=== PATIENT | female | born 1955 | race Caucasian/White ===

== ENCOUNTER → 2023-08-10 06:23 | Day surgery (SDC) | payer OTHER, SELFPAY | LOC: GI 06:23 | PROVIDERS: ATTENDING PHYSICIAN Internal Medicine; FAMILY PHYSICIAN Family Medicine | DX: Z12.11 Encounter for screening for malignant neoplasm of colon (principal); K57.30 Diverticulosis of large intestine without perforation or abscess without bleeding; D12.8 Benign neoplasm of rectum | CPT/HCPCS: 45385; 88305 ==

== ENCOUNTER 2023-10-01 18:48 | Inpatient (IN) | payer OTHER, SELFPAY ==
[2023-10-01 15:03] VITALS: BP 159/98
--- NOTE | 2023-10-01 16:41 | ED.GENMED ---
History of Present Illness
<MARIBEL Mcnally - Last Filed: 10/01/23 23:24>
General
Chief Complaint: Skin Problem
Source: patient
Exam Limitations: none
Time Seen by Provider: 10/01/23 15:17
Nursing documentation reviewed up to this point in time: agreed with
Travel History
Have you had any contact with someone who has COVID-19?: No
Do you have any symptoms of coronavirus? Fever > 100 degrees, chills, cough, shortness of breath, sore throat, loss of taste or smell, muscle aches, or headache?: No
History of Present Illness
History of Present Illness:
68-year-old female presents to the ER for evaluation of right thumb infection. She reports that she started with redness almost a week ago to the right thumb. She saw her family doctor on Wednesday and was placed on Bactrim. She has since taken 5
doses. Today however she noticed red streaking extending up her arm. She did try to put a needle in it to drain it this a.m. She did use alcohol fire prevention bureau captain. She went to her family doctor's and was sent here. She reports it did start to drain. She now
feels a little feverish.
Past History
<MARIBEL Mcnally - Last Filed: 10/01/23 23:24>
Past History
ED Past Medical History: HTN
ED Past Surgical History: Gynecological and Orthopedic
Social History
Tobacco: Non-smoker
Alcohol: None
Drug: None
Living: with family
Review of Systems
<MARIBEL Mcnally - Last Filed: 10/01/23 23:24>
Review of Systems
Allergies reviewed?: Yes
All Other Systems: ROS reviewed and negative except as documented in HPI and ROS
Constitutional: Reports no symptoms; Denies fever or fatigue
Respiratory: Reports no symptoms
Cardiac: Reports no symptoms
Musculoskeletal: Reports other (right thumb swelling pain redness now with red streaking up her arm )
Skin: Reports no symptoms
Neurological: Reports no symptoms
Psychiatric: Reports no symptoms
Phy Exam
<MARIBEL Mcnally - Last Filed: 10/01/23 23:24>
General Physical Exam
General Presentation: no apparent distress
General age: appears stated age
General Skin: warm and dry
General Habitus: normal
General Mental: alert
General Hydration: appears well hydrated
Neurological Exam
Neurological Exam: alert and oriented x3
Musculoskeletal Exam
Musculoskeletal Exam: other (right thumb is swollen + visible pus proximal to cuticle draining , erythema extending up proximal arm )
Skin Exam
Skin Exam: normal color and warm/dry
Psychiatric Exam
Psychiatric Exam: normal mood/affect
Course
<MARIBEL Mcnally - Last Filed: 10/01/23 23:24>
Orders/Labs/Results
Orders:
Orders
10/01/23 Breakfast
Cholesterol Lowering
At Your Request: Full Participation
Cholesterol Lowering: Sodium, 2 Gram
10/01/23 16:38
IV Insert/Care/Rem.- Treatment PRN
10/01/23 16:54
Complete Blood Count/With Diff Urgent
Comprehensive Metabolic Panel Urgent
Lactic Acid Q4H
Comment: CANCEL 2nd LACTIC ACID IF 1st LACTIC ACID IS LESS THAN 2
Blood Culture Q30M
RAMA Source: Blood/Venous
Specimen Description:
Wound Culture [Wound/Abscess/Other Culture] Urgent
RAMA Source: Finger
Specimen Description: Right
Date Specimen was Collected: 10/01/23
Time Specimen was Collected: 16:41
10/01/23 17:17
Blood Culture Q30M
RAMA Source: Blood/Venous
Specimen Description:
10/01/23 17:58
ORTHOPEDIC CONSULT Urgent
Consulting Provider: Fabiano Green
Was physician already notified: Yes
10/01/23 18:03
CeFAZolin 1 GRAM [Ancef] 1 gram in 5 ml IV NOW
10/01/23 18:10
Finger(s)/Thumb 2 View Rt [CR Finger(s)/thumb Min 2 Vw Rt] Urgent
Comment:
Reason For Exam: right thumb infection
10/01/23 18:13
CeFAZolin 1 GRAM [Ancef] 1 gram in 5 ml IV NOW
10/01/23 18:24
Tetanus/Diphth/Acelpertussis [Adacel] 0.5 ml IM .ONCE ONE
10/01/23 18:32
Admit/Transfer Patient As Directed
Co-Sign Provider:
Level of Care: Inpatient admission
Assign to:: Medical/Surgical
Physician / Group: Ross arce
Diagnosis: right thumb cellulitis
Reason for Hospitalization: right thumb cellulitis
Expected length of stay greater than two midnights?: Yes
ELOS- Estimated Length of Stay in days: 3
I certify the patient meets the requirements for IP care: Yes
10/01/23 18:33
Code Status As Directed
Resuscitation Status: Full Code
10/01/23 19:54
Acetaminophen [Tylenol] 650 mg PO Q4HPRN PRN
10/01/23 19:54
INFECTIOUS DISEASE CONSULT Routine
Consulting Provider: Deyanira Zhang
Was physician already notified: Yes
Activity As Directed
Activity Level: Out of Bed-Early Mobility
Intake/ Output As Directed
Frequency: Per unit guidelines
Vital Signs As Directed
Frequency: Per unit guidelines
DX Deep Vein Thrombosis Video Routine
10/01/23 20:00
VANCOMYCIN Pharmacy to Dose [VANCOCIN Pharmacy to Dose] 1 each Pharmacy To Prepare [Call Pharmacy To Prepare] 0 ml IV PER PROTOCOL
cycloSPORINE [Restasis 0.05% Ophthalmic Emulsion] 10 drops BOTH EYES BID
10/01/23 22:00
Cefepime HCl [Maxipime] 2,000 mg IV Q8H
doxylamine succinate 25 mg PO HS
10/02/23 06:00
Basic Metabolic Panel IN AM
Complete Blood Count/No Diff IN AM
10/02/23 18:00
Enoxaparin Sodium [Lovenox] 40 mg SC QPM
Lisinopril [Zestril] 20 mg PO QPM
10/03/23 06:00
Basic Metabolic Panel IN AM
Complete Blood Count/No Diff IN AM
10/04/23 06:00
Basic Metabolic Panel IN AM
Complete Blood Count/No Diff IN AM
10/05/23 06:00
Basic Metabolic Panel IN AM
Complete Blood Count/No Diff IN AM
10/06/23 06:00
Basic Metabolic Panel IN AM
Complete Blood Count/No Diff IN AM
Abnormal Lab Results
10/01/23
16:54
MPV 10.5 H fL
(7.4-10.4)
Absolute Neuts (auto) 7.3 H 10^3/uL
(1.4-6.5)
Absolute Monos (auto) 0.9 H 10^3/uL
(0.1-0.6)
10/01/23 16:54
10/01/23 16:54
Vital Signs
Initial and Last Documented VS:
Initial Vital Signs
Temp Pulse Resp BP Pulse Ox
98.3 F 87 18 159/98 99
10/01/23 15:03 10/01/23 15:03 10/01/23 15:03 10/01/23 15:03 10/01/23 15:03
Last Documented Vital Signs
Temp Pulse Resp BP Pulse Ox
98.3 F 79 16 153/89 98
10/01/23 15:03 10/01/23 18:47 10/01/23 18:47 10/01/23 18:47 10/01/23 18:47
Decommissioning Well Site Manager consulted with Physician
Decommissioning Well Site Manager consulted with physician?: Yes
Name of Physician Consulted: armond
<Mikie Gandhi MD - Last Filed: 10/01/23 18:44>
Orders/Labs/Results
Orders:
Orders
10/01/23 Breakfast
Cholesterol Lowering
At Your Request: Full Participation
Cholesterol Lowering: Sodium, 2 Gram
10/01/23 16:38
IV Insert/Care/Rem.- Treatment PRN
10/01/23 16:54
Complete Blood Count/With Diff Urgent
Comprehensive Metabolic Panel Urgent
Lactic Acid Q4H
Comment: CANCEL 2nd LACTIC ACID IF 1st LACTIC ACID IS LESS THAN 2
Blood Culture Q30M
RAMA Source: Blood/Venous
Specimen Description:
Wound Culture [Wound/Abscess/Other Culture] Urgent
RAMA Source: Finger
Specimen Description: Right
Date Specimen was Collected: 10/01/23
Time Specimen was Collected: 16:41
10/01/23 17:17
Blood Culture Q30M
RAMA Source: Blood/Venous
Specimen Description:
10/01/23 17:58
ORTHOPEDIC CONSULT Urgent
Consulting Provider: Fabiano Green
Was physician already notified: Yes
10/01/23 18:03
CeFAZolin 1 GRAM [Ancef] 1 gram in 5 ml IV NOW
10/01/23 18:10
Finger(s)/Thumb 2 View Rt [CR Finger(s)/thumb Min 2 Vw Rt] Urgent
Comment:
Reason For Exam: right thumb infection
10/01/23 18:13
CeFAZolin 1 GRAM [Ancef] 1 gram in 5 ml IV NOW
10/01/23 18:24
Tetanus/Diphth/Acelpertussis [Adacel] 0.5 ml IM .ONCE ONE
10/01/23 18:32
Admit/Transfer Patient As Directed
Co-Sign Provider:
Level of Care: Inpatient admission
Assign to:: Medical/Surgical
Physician / Group: Ross arce
Diagnosis: right thumb cellulitis
Reason for Hospitalization: right thumb cellulitis
Expected length of stay greater than two midnights?: Yes
ELOS- Estimated Length of Stay in days: 3
I certify the patient meets the requirements for IP care: Yes
10/01/23 18:33
Code Status As Directed
Resuscitation Status: Full Code
10/01/23 19:54
Acetaminophen [Tylenol] 650 mg PO Q4HPRN PRN
10/01/23 19:54
INFECTIOUS DISEASE CONSULT Routine
Consulting Provider: Deyanira Zhang
Was physician already notified: Yes
Activity As Directed
Activity Level: Out of Bed-Early Mobility
Intake/ Output As Directed
Frequency: Per unit guidelines
Vital Signs As Directed
Frequency: Per unit guidelines
DX Deep Vein Thrombosis Video Routine
10/01/23 20:00
VANCOMYCIN Pharmacy to Dose [VANCOCIN Pharmacy to Dose] 1 each Pharmacy To Prepare [Call Pharmacy To Prepare] 0 ml IV PER PROTOCOL
cycloSPORINE [Restasis 0.05% Ophthalmic Emulsion] 10 drops BOTH EYES BID
10/01/23 22:00
Cefepime HCl [Maxipime] 2,000 mg IV Q8H
doxylamine succinate 25 mg PO HS
10/02/23 06:00
Basic Metabolic Panel IN AM
Complete Blood Count/No Diff IN AM
10/02/23 18:00
Enoxaparin Sodium [Lovenox] 40 mg SC QPM
Lisinopril [Zestril] 20 mg PO QPM
10/03/23 06:00
Basic Metabolic Panel IN AM
Complete Blood Count/No Diff IN AM
10/04/23 06:00
Basic Metabolic Panel IN AM
Complete Blood Count/No Diff IN AM
10/05/23 06:00
Basic Metabolic Panel IN AM
Complete Blood Count/No Diff IN AM
10/06/23 06:00
Basic Metabolic Panel IN AM
Complete Blood Count/No Diff IN AM
Abnormal Lab Results
10/01/23
16:54
MPV 10.5 H fL
(7.4-10.4)
Absolute Neuts (auto) 7.3 H 10^3/uL
(1.4-6.5)
Absolute Monos (auto) 0.9 H 10^3/uL
(0.1-0.6)
10/01/23 16:54
10/01/23 16:54
Vital Signs
Initial and Last Documented VS:
Initial Vital Signs
Temp Pulse Resp BP Pulse Ox
98.3 F 87 18 159/98 99
10/01/23 15:03 10/01/23 15:03 10/01/23 15:03 10/01/23 15:03 10/01/23 15:03
Last Documented Vital Signs
Temp Pulse Resp BP Pulse Ox
98.3 F 79 16 153/89 98
10/01/23 15:03 10/01/23 18:47 10/01/23 18:47 10/01/23 18:47 10/01/23 18:47
<MARIBEL Mcnally - Last Filed: 10/01/23 23:24>
MDM/Problems Addressed
Differential Diagnosis Includes:
Not limited to thumb infection felon paronychia which has worsened,
MDM/Problems Addressed:
Patient is a 68-year-old female who presented with right thumb infection with worsening swelling now with lymphangitis extending up her arm. She was seen by family doctor and sent here to the ER. On exam she is obvious swelling to her right thumb
with visible pus to the proximal phalanx under the skin. This thumb is red with lymphangitis up the arm. Possible felon? She denies any fevers and is afebrile here. Patient has completed 5 days of antibiotics. Patient was evaluated attending
who also spoke with orthopedic hand surgery Dr. Green. Dr. Green will see patient tomorrow IV antibiotics ordered. Pt requires admission as she will need IV antibiotics and hand eval. continued monitoring . Patient with normal white count
normal chemistries.
<MARIBEL Mcnally - Last Filed: 10/01/23 23:24>
*Pulse Oximetry
Patient hypoxic: no
*Critical Care Note
Total Time (30-74mins, 75-104mins- exclusive of procedures): Not Applicable
ED Attending Note
<MARIBEL Mcnally - Last Filed: 10/01/23 23:24>
-
Portions of this chart may have been created with voice recognition software.� Occasional wrong word or��sound alike� substitutions may have occurred due to the inherent limitations of voice recognition software.
<Mikie Gandhi MD - Last Filed: 10/01/23 18:44>
ED Attending Note
Patient seen and examined by attending physician: Yes
ED Attending Note:
I have seen and evaluated the patient with a [id number] encounter. I have spoken to the advance practicer provider and involved in the medical history, the physical exam, medical decision making.
Evaluation and management service: agree unless noted differently below.
Results interpretation: agree unless noted differently below.
Focused HPI: 68-year-old female with past medical history of hypertension who presents to the emergency department for evaluation of right thumb swelling, redness, pain. She says that she started noticed some pain in the pad of the thumb a week
ago. She denies any trauma or injuries. She says that she saw her primary doctor who started her on antibiotics (Bactrim) and she has taken about 3 days worth without improvement in fact her symptoms are worsening. Today she woke up and swelling
was much worse particularly at the nailbed and so she came to the emergency room for assessment. No fevers or chills.
Physical exam: Awake alert, oriented. Hypertensive otherwise normal vitals. She has significant swelling of the pad of the right thumb and warmth, tenderness, fullness in this area. She has a large paronychia on the nailbed of the right thumb.
She has some breakdown of the skin overlying the nailbed exposing the base of her nail. She has streaking redness up to the right upper arm. Good pulse in the right upper extremity.
Medical Decision Makin-year-old female presents with pain, swelling, redness of the right thumb for the past week worsening despite outpatient treatment with Bactrim. No trauma. Her exam is concerning for a felon and certainly she also has a
paronychia. She has streaking redness up the arm concerning for lymphangitis. Paronychia drained. Started on antibiotics. Discussed with hand surgery for evaluation with concern for felon�they will consult on patient agreed with antibiotics and
admission. Discussed with hospitalist for admission.
Discharge Plan
Departure
Patient Disposition: Admit
Date of Disposition: 10/01/23
Time of Disposition: 18:10
Admit to doctor: hospitalist
Presentation/result/management discussed w/ accepting MD/DO: Hospitalist
Patient with high blood pressure during this ER visit?: Yes
Condition: Fair
Covid-19: Not Applicable
Discharge Problem:
Finger infection
Interventions
Interventions:
*Risk Screen - Suicide Last Done: 10/01/23 15:05
*General Assessment Last Done: 10/01/23 15:05
*Neglect/Abuse Screening Last Done: 10/01/23 15:05
*ED COVID-19 Vaccine History Last Done: 10/01/23 15:04
*Nursing Disposition Last Done: 10/01/23 19:38
ED-Skin Assessment Last Done: 10/01/23 16:58
Discharge Date and Time
Discharge Date/Time: 10/01/23 19:39
[2023-10-01 16:58] VITALS: BMI 23.5
[2023-10-01 17:09] LABS: % Basophils 0.5 % (0-2); % Eosinophils 1.8 % (0-6); % Immature Granulocytes 0.4 % (0-0.5); % Monocytes 8.4 % (1.7-9.3); % Neutrophils 66.9 % (42.2-75.2); Absolute Basophils 0.1 10^3/uL (0-0.2); Absolute Eosinophils 0.2 10^3/uL (0-0.7); Absolute Lymphocytes 2.4 10^3/uL (1.2-3.4); Absolute Monocytes 0.9 10^3/uL (0.1-0.6); Absolute Neutrophils 7.3 10^3/uL (1.4-6.5); Hematocrit 41.4 % (37.0-47.0); Hemoglobin 14.1 g/dL (12.0-16.0); Mean Corp Hgb Conc. 34.1 g/dL (33.0-37.0); Mean Corpuscular Hgb 30.3 pg (27.0-31.0); Mean Platelet Volume 10.5 fL (7.4-10.4); Nucleated Red Blood Cells % 0 %; Platelet Count 261 10^3/uL (130-400); Red Blood Cell Count 4.65 10^6/uL (4.20-5.40); Red Cell Dist. Width 13.3 % (11.5-14.5); White Blood Cell Count 10.8 10^3/uL (4.8-10.8)
[2023-10-01 17:20] LABS: Lactic Acid 0.9 mmol/L (0.7-2.0)
[2023-10-01 17:23] LABS: ALT (SGPT) 15 U/L (0-35); AST (SGOT) 28 U/L (14-36); Albumin 4.7 g/dl (3.5-5.0); Alkaline Phosphatase 71 U/L (38-126); Blood Urea Nitrogen 17 mg/dl (7-17); Calcium 9.4 mg/dl (8.4-10.2); Carbon Dioxide 25 mmol/L (22-30); Chloride 103 mmol/L (98-107); Estimated Creatinine Clearance 60 ml/min; Glucose 92 mg/dl (70-99); Potassium 4.5 mmol/L (3.5-5.1); Sodium 135 mmol/L (135-145); Total Bilirubin 0.6 mg/dl (0.2-1.3); Total Protein 7.8 g/dl (6.3-8.2); eGFR > 60.00
--- NOTE | 2023-10-01 18:16 | HPS.HSE ---
Family Physician
<MARIBEL Montague - Last Filed: 10/01/23 18:42>
-
Family Physician: Hugo Yao
Chief Complaint
<MARIBEL Montague - Last Filed: 10/01/23 18:42>
-
Right thumb swelling
History of Present Illness
68-year-old female past medical history for hypertension presents to us with right thumb redness and swelling. It started 5 days ago. She had her nails done 3 weeks ago. She did it ago on Wednesday, but the swelling started 5 days ago. progressive
swelling, redness got worse. she was started on Bactrim Wednesday. no relief in her symptoms.� Today however she noticed red streaking extending up her arm.� She did try to put a needle in it to drain it this a.m.� She did use alcohol correctional captain.� She went
to her family doctor's and was sent here.� Patient denied any fever, chills, chest pain, short of breath patient denied any headache, dizziness, syncopal episode patient denied abdominal pain, nausea diarrhea. Patient denied dysuria hematuria.
Patient received tetanus shot, cefazolin in ER. Orthopedics consulted. Pending for further management
Medical History
<MAIRBEL Montague - Last Filed: 10/01/23 18:42>
Past Medical History
Past Medical History: Reports Other
Additional Past Medical History:
Hypertension
Past Surgical History: Reports None
Social History
Tobacco: Non-smoker
Alcohol: Occasional
Drug: None
Living: With Family
Family History
Family History: Not pertinent
Allergies / Home Medications
Allergies reflects when Allergies were last updated in [employer].
Home Medications with original date entered in [employer]
Allergy/Medication List:
Allergies
Allergy/AdvReac Type Severity Reaction Status Date / Time
Penicillins Allergy Mild SENSITIVITY Verified 10/01/23 15:04
Home Medications
amlodipine 5 mg tablet 5 mg PO QPM 12/22/14
lisinopril 20 mg tablet 20 mg PO QPM 12/22/14
cyclosporine 0.05 % eye drops in a dropperette (Restasis) 1 ea BOTH EYES BID 08/09/20
doxylamine succinate 25 mg tablet 25 mg PO HS 10/01/23
ibandronate 150 mg tablet 150 mg PO MONTHLY 10/01/23
sulfamethoxazole 800 mg-trimethoprim 160 mg tablet 1 tab PO BID 10/01/23
Review of Systems
<MARIBEL Montague - Last Filed: 10/01/23 18:42>
-
Constitutional: Reports No Symptoms
EENT: Reports No Symptoms
Respiratory: Reports No Symptoms
Cardiac: Reports No Symptoms
Abdomen/GI: Reports No Symptoms
: Reports No Symptoms
Musculoskeletal: Reports No Symptoms
Skin: Reports Other (Right stump infection, redness streaking to arm)
Neurological: Reports No Symptoms
Endocrine: Reports No Symptoms
Hematologic/Lymphatic: Reports No Symptoms
Psych: Reports No Symptoms
Physical Exam
<MARIBEL Montague - Last Filed: 10/01/23 18:42>
Vital Signs
Vital Signs
Temp Pulse Resp BP Pulse Ox
98.3 F 87 18 159/98 99
10/01/23 15:03 10/01/23 15:03 10/01/23 15:03 10/01/23 15:03 10/01/23 15:03
Physical Exam
General: Well Developed, Well Nourished and No Apparent Distress
HEENT: NormoCephalic, Moist mucous membranes and Atraumatic
Respiratory: Clear
Cardiac: S1/S2 and Regular Rhythm; No Murmur or Rub
GI: Soft, Non Tender, Non Distended and Normal Bowel Sounds; No Organomegaly
Rectal: Deferred by Provider
Musculoskeletal: No Clubbing, No Cyanosis and No Edema
Skin: Rash and Other (Right thumb swelling redness, ecchymotic. Redness streaking to arm)
Neuro: Nonfocal/grossly intact
Psych: Calm
Laboratory Results
<MARIBEL Montague - Last Filed: 10/01/23 18:42>
-
10/01/23 16:54
10/01/23 16:54
Laboratory Results
Lactic Acid Cancelled 10/01/23 20:45
Total Bilirubin 0.6 mg/dl (0.2-1.3) 10/01/23 16:54
AST 28 U/L (14-36) 10/01/23 16:54
ALT 15 U/L (0-35) 10/01/23 16:54
Alkaline Phosphatase 71 U/L (38-126) 10/01/23 16:54
Data Reviewed
<MARIBEL Montague - Last Filed: 10/01/23 18:42>
-
Lab Data: Labs Reviewed by me
Impression/Plan
<MARIBEL Montague - Last Filed: 10/01/23 18:42>
-
# Right thumb infection with lymphangitis
-failed outpatient therapy
-blood and wound culture sent from ER
-IV Vanco and cefepime
-Tylenol and Tramadol as needed for fever and pain
-orthopedics consulted
-thumb x ray pending
-ID consulted
# Essential hypertension
-Lisinopril 20 mg daily
-Norvasc discontinued few days ago due to hypotension
# DVT prophylaxis
-Lovenox subcu
# CODE STATUS
-Full code
<Ross Alonzo MD - Last Filed: 10/01/23 18:37>
-
# Right thumb infection with lymphangitis
-failed outpatient therapy
-blood and wound culture sent from ER
-IV Vanco and cefepime
-Tylenol and Toradol as needed for fever and pain
-orthopedics consulted
-thumb x ray pending
-ID consulted
# Essential hypertension
-Lisinopril 20 mg daily
-Norvasc discontinued few days ago due to hypotension
# DVT prophylaxis
-Lovenox subcu
# CODE STATUS
-Full code
I saw and examined the patient.
The BARREL BUILDER or PA's note was reviewed and I agree with the note.
Comment:
68-year-old female presented with right thumb infection
GEN: No acute distress, conversant, pleasant
HEENT: anicteric, extraocular movements intact, clear oropharynx without exudates
CV: normal S1/S2, no murmur, rub or gallop
RESP: clear to auscultation bilaterally
GI: soft, non-distended, not tender to palpation, normal active bowel sounds, no hepatosplenomegaly
EXT: warm, well perfused, no edema bilaterally. Right thumb inflamed infected with pus, erythema extending from the right thumb up to the elbow area
NEURO: AAOx3, non-focal
Psych, no agitation
# Right thumb abscess with lymphangitis
Admit the patient to the hospital. Failed outpatient treatment with oral
Start the patient on IV antibiotics, will review her antibiotic allergies
Pain control with Tylenol and Advil
Consult orthopedics
N.p.o. past midnight
Will do tetanus booster
Appreciate orthopedic help
# Primary hypertension, uncontrolled, will monitor in the hospital and adjust medications as needed
Will add as needed hydralazine
# DVT prophylaxis
Total time spent to see the patient, examine the patient on the floor, review data and lab results, discuss treatment plan with the patient, nursing staff and ER doctor around 75 minutes
[2023-10-01] MEDS: ADACEL 0.5 ML IM (18:45)
[2023-10-01] MEDS: ANCEF 5 IV (18:45)
[2023-10-01 18:47] VITALS: BP 153/89
--- NOTE | 2023-10-01 20:20 | PHA.VAN.IN ---
Assessment
- Assessment
Concomitant Antimicrobials: cefepime
Plan
- Plan
Initial / Loading Dose: vanc 1500mg pending administration
Maintenance Regimen: dosing by level
Monitoring: random level 10/01 599
Pharmacokinetics Vancomycin I
- -
Patient Age: 68
Patient Sex: Female
Vancomycin Day #: 1
Indication: Skin And Soft Tissue
Requesting Provider: Latia Thacker
Pertinent Antimicrobial Allergies:
penicillin - yeast infection
Height / Weight:
Height 5 ft 5 in
Actual Weight 64 kg
- Vital Signs / Lab Results
Temp Pulse Resp BP Pulse Ox
98.3 F 79 16 153/89 98
10/01/23 15:03 10/01/23 18:47 10/01/23 18:47 10/01/23 18:47 10/01/23 18:47
Lab Results - Hematology
10/01/23
16:54
WBC 10.8
Lab Results - Chemistry
10/01/23
16:54
BUN 17
Creatinine 0.8
Estimated Creat Clear 60
Albumin 4.7
10/01/23 10/01/23
16:54 20:45
Lactic Acid 0.9 Cancelled
Microbiology Results
10/01/23 16:54 Gram Stain - Preliminary
Finger - Right
[2023-10-01] MEDS: MOTRIN 200 MG PO (21:02)
[2023-10-01] MEDS: VANCOCIN 300 MG IV (21:02)
[2023-10-01] MEDS: VANCOCIN 300 ML IV (21:02)
[2023-10-01] MEDS: ZESTRIL 20 MG PO (21:26)
[2023-10-01] MEDS: RESTASIS 0.05% OPHTHALMIC EMULSION 1 DROPS OPHTH (22:03)
[2023-10-01] MEDS: MAXIPIME 2000 MG IV (22:45)
[2023-10-01] MEDS: STERILE WATER FOR INJECTION 10 ML IV (22:45)
[2023-10-01] MEDS: MELATONIN 5 MG PO (22:46)
[2023-10-01 23:00] VITALS: BP 130/84
--- NOTE | 2023-10-01 23:19 | PTCARENOTE ---
Rec'd pt from the ER at the start of the shift. PT walked from stretcher to the bed. Denies pain at this time. Right thumb is red, swollen, and draining serousanquinous fluid. Magalis LÓPEZ was contacted to order pt's medications (zestril and
restasis) that weren't order for tonight. Oriented to unit. call bai in reach.
[2023-10-02] MEDS: MOTRIN 200 MG PO (02:49)
[2023-10-02] MEDS: STERILE WATER FOR INJECTION 10 ML IV ×3 (06:08→22:09)
[2023-10-02] MEDS: MAXIPIME 2000 MG IV ×3 (06:08→22:09)
[2023-10-02 07:00] VITALS: BP 120/74
[2023-10-02 07:18] LABS: Hematocrit 39.4 % (37.0-47.0); Hemoglobin 13.4 g/dL (12.0-16.0); Mean Corpuscular Hgb 30.7 pg (27.0-31.0); Mean Corpuscular Volume 90.2 fL (81.0-99.0); Mean Platelet Volume 10.4 fL (7.4-10.4); Platelet Count 245 10^3/uL (130-400); Red Blood Cell Count 4.37 10^6/uL (4.20-5.40); Red Cell Dist. Width 13.4 % (11.5-14.5); White Blood Cell Count 8.3 10^3/uL (4.8-10.8)
[2023-10-02 07:35] LABS: Vancomycin Random 10.4 ug/ml
[2023-10-02] MEDS: RESTASIS 0.05% OPHTHALMIC EMULSION 1 DROPS BOTH EYES ×2 (08:07→21:08)
[2023-10-02 08:09] LABS: Blood Urea Nitrogen 20 mg/dl (7-17); Calcium 9.4 mg/dl (8.4-10.2); Carbon Dioxide 24 mmol/L (22-30); Chloride 102 mmol/L (98-107); Estimated Creatinine Clearance 68 ml/min; Glucose 91 mg/dl (70-99); Potassium 4.9 mmol/L (3.5-5.1); Sodium 137 mmol/L (135-145); eGFR > 60.00
--- NOTE | 2023-10-02 08:57 | PHA.VAN.FU ---
Vancomycin Assessment / Plan
- Assessment
Renal Function: Stable
WBC's are: WNL
In the past 24 hrs, patient has been: Afebrile
Concomitant Antimicrobials: CEFEPIME
- Assessment - Therapeutic Drug Monitoring
Random Level: 10.4
- Dosing Plan
Adjust Regimen to: 750MG Q12H
New Regimen Predicts: AUC (567), Peak (32.3), Trough (16.5)
- Monitoring Plan
No level(s) ordered at this time: CONSIDER AT [facility]AD[facility]
- Follow Up
Pharmacy will continue to follow.
Vancomycin Follow UP
- -
Patient Age: 68
Patient Sex: Female
Vancomycin Day #: 2
Indication: Skin And Soft Tissue
Requesting Provider: Latia Thacker
Pertinent Antimicrobial Allergies:
penicillin - yeast infection
Height / Weight:
Height 5 ft 5 in
Actual Weight 64 kg
- Vital Signs / Lab Results
Temp Pulse Resp BP Pulse Ox
97.6 F 60 12 120/74 100
10/02/23 07:00 10/02/23 07:00 10/02/23 07:00 10/02/23 07:00 10/02/23 07:00
Lab Results - Hematology
10/01/23 10/02/23
16:54 06:59
WBC 10.8 8.3
Lab Results - Chemistry
10/01/23 10/02/23
16:54 06:59
BUN 17 20 H
Creatinine 0.8 0.7
Estimated Creat Clear 60 68
Albumin 4.7
10/01/23 10/01/23
16:54 20:45
Lactic Acid 0.9 Cancelled
Microbiology Results
10/01/23 16:54 Gram Stain - Preliminary
Finger - Right
Therapeutic Drug Monitoring
Random Vancomycin 10.4 ug/ml 10/02/23 06:59
--- NOTE | 2023-10-02 09:29 | CM ---
Patient seen bedside.
IA completed.
Patient lives with spouse in 2 story home.
No assistive devices.
Patient drives and works.
Patient is supposed to be on a plance to [place] for vacation.
PCP: Dr Yao
Pharm: [facility] [address]
Plan:home no needs anticipated.
--- NOTE | 2023-10-02 10:11 | W.PN.HOSP.TC ---
Today's Communication/Plan
-
.
Assessment / Plan
Assessment / Plan
GEN:� No acute distress, conversant, pleasant
HEENT:� anicteric, extraocular movements intact, clear oropharynx without exudates
CV:� normal S1/S2, no murmur, rub or gallop
RESP:� clear to auscultation bilaterally
GI:� soft, non-distended, not tender to palpation, normal active bowel sounds, no hepatosplenomegaly
EXT:� warm, well perfused, no edema bilaterally.� Right thumb inflamed infected with pus, erythema extending from the right thumb up to the elbow area
NEURO:� AAOx3, non-focal
Psych, no agitation
68-year-old female presented with right thumb infection
# Right thumb abscess with lymphangitis
Failed outpatient treatment with oral
Erythema in forearm is less today. Thumb + swelling and pus.
Pain control with Tylenol and Advil
Not toxic appearing
Normal WBC
N.p.o. past midnight
s/p tetanus booster
Appreciate orthopedic & ID help
# Primary hypertension, better controlled, will monitor in the hospital and adjust medications as needed
Will add as needed hydralazine
# DVT prophylaxis
Total time spent to see the patient, examine the patient on the floor, review data and lab results, discuss treatment plan with the patient, nursing staff around 55 minutes
Anticipated Discharge: 24 - 48 hours
Subjective/Interval History
-
Date of Service: October 02, 2023
No chest pain
No sob
Less thumb pain
Objective Data
-
Labs:
Laboratory Results
10/02/23
06:59
WBC 8.3
Hgb 13.4
Hct 39.4
Plt Count 245
Sodium 137
Potassium 4.9
Chloride 102
Carbon Dioxide 24
BUN 20 H
Creatinine 0.7
Glucose 91
Calcium 9.4
Vital Signs:
Vital Signs
Temp Pulse Resp BP Pulse Ox
97.6 F 60 12 120/74 100
10/02/23 07:00 10/02/23 07:00 10/02/23 07:00 10/02/23 07:00 10/02/23 07:00
--- NOTE | 2023-10-02 10:17 | W.PN.UPDATE ---
Update Note
Progress Note Update
With severe paronychial infection R thumb
Doubt Felon infection
I feel this should improve with conservative treatment
Doubt will need surgery at this time
Rec;
Twice daily hydrogen peroxide soaks followed by bacitracin dry sterile dressing (ordered)
IV antibx
Will follow
thanks
GGMD
[2023-10-02] MEDS: VANCOCIN 150 IV ×2 (11:14→17:15)
--- NOTE | 2023-10-02 12:31 | CON.ID ---
Consultation
-
Date/Time Consultation Requested: 10/01/23 19:54
Date/Time Consultation Performed: 10/02/23 12:31
Requesting Provider: Kedar APODACA
Performing Provider: Dr Zhang
Reason for Consultation: paronychia and lymphangitis
Chief Complaint / Past History
Chief Complaint
Right thumb swelling
History of Present Illness
Ms Long is a 68 [place] old female without significant past medical history who presented here for a 5 day history of progressive right thumb swelling and redness. Nails were done 3 weeks ago. Then on wednesday started redness and swelling.
Wednesday started bactrim without improvement and progressed to lymphangitic streaking. She used a needle to try to drain the lesion without improvement. denied any fever, chills, chest pain, short of breath patient denied any headache, dizziness,
syncopal episode patient denied abdominal pain, nausea diarrhea
Since arrival here she has been afebrile, bp stable, wbc 8, plt 245, no left shift, cr 0.7, t bili 0.6, ast 28, alt 15, alk phos 71, finger xray: soft tissue swelling, wound culture no growth, blood cultures x2 no growth, mrsa screen pending,
currently on vanc and cefepime, reports resolved lymphagitis, improved redness and range on motion on this regimen.
Past History
Additional Past Medical History:
HTN
osteopneia/porosis
Past Surgical History: None
Allergy History:
Penicillins Adverse Reaction (Verified 10/01/23 20:21)
yeast infection
Medications Reviewed: Yes
Social History
Tobacco: Non-Smoker
Alcohol: Occasional
Drug: None
Family History
Family History: Not Pertinent
Review of Systems
Review of Systems
General: Negative Fever or Chills
All systems: All other systems were reviewed and were negative
Vital Signs
Temp Pulse Resp BP Pulse Ox
97.6 F 60 12 120/74 99
10/02/23 07:00 10/02/23 07:00 10/02/23 07:00 10/02/23 07:00 10/02/23 08:20
Physical Exam
Physical Exam
Constitutional: No Acute Distress
Cardiovascular: Regular Rate and S1/S2; Negative Murmur or Rub
Pulmonary: Clear and Symmetric; Negative Wheezes, Rales or Rhonchi
Gastrointestinal: Soft, Non Tender, Non Distended and Normal Bowel Sounds
Skin: Warm and Dry; Negative Rash or Jaundice
Wound: Other (swelling and mild redness around the nail; range of motion mildly limited, no lymphangitis at this time)
Lab / Diagnostic Study Results
10/02/23 06:59
10/02/23 06:59
Abs Immat Gran (auto) 0.0 10^3/uL (0-0.05) 10/01/23 16:54
Absolute Neuts (auto) 7.3 10^3/uL (1.4-6.5) H 10/01/23 16:54
Absolute Lymphs (auto) 2.4 10^3/uL (1.2-3.4) 10/01/23 16:54
Absolute Monos (auto) 0.9 10^3/uL (0.1-0.6) H 10/01/23 16:54
Absolute Basos (auto) 0.1 10^3/uL (0-0.2) 10/01/23 16:54
Immature Gran % 0.4 % (0-0.5) 10/01/23 16:54
Neutrophils % 66.9 % (42.2-75.2) 10/01/23 16:54
Lymphocytes % 22.0 % (20.5-51.1) 10/01/23 16:54
Monocytes % 8.4 % (1.7-9.3) 10/01/23 16:54
Eosinophils % 1.8 % (0-6) 10/01/23 16:54
Basophils % 0.5 % (0-2) 10/01/23 16:54
Lactic Acid Cancelled 10/01/23 20:45
Microbiology Results
Micro:
10/01/23 16:54 Wound Culture - Preliminary
Finger - Right No growth
Gram Stain - Preliminary
10/01/23 20:17 MRSA Screen - Pending
Nose
10/01/23 17:17 Blood Culture - Pending
Blood/Venous
10/01/23 16:54 Blood Culture - Pending
Blood/Venous
Assessment / Plan
Paronychia
Resolved Lymphoangitis
- blood cultures x2 in progress
- mrsa screen in progress
- agree with vanc/cefepime for now
- planning to travel to [place] wednesday; if continued improvement then discharge tomorrow is feasible from my perspective, would plan a 14 day course of linezolid 600 mg PO BID and keflex 500 mg PO QID; urged travel insurance
[2023-10-02 15:00] VITALS: BP 127/58
[2023-10-02] MEDS: LOVENOX 40 MG SC (17:15)
[2023-10-02] MEDS: ZESTRIL 20 MG PO (17:16)
[2023-10-02] MEDS: POLYSPORIN/DOUBLE ANTIBIOTIC 1 APPLIC TOPICAL (21:09)
[2023-10-02] MEDS: MELATONIN 5 MG PO (22:09)
[2023-10-02 22:49] VITALS: BP 116/70
[2023-10-03] MEDS: MAXIPIME 2000 MG IV ×2 (06:14→13:07)
[2023-10-03] MEDS: STERILE WATER FOR INJECTION 10 ML IV ×2 (06:14→13:07)
[2023-10-03] MEDS: VANCOCIN 150 IV (06:22)
[2023-10-03 07:35] VITALS: BP 122/87
[2023-10-03 07:52] LABS: Hematocrit 38.9 % (37.0-47.0); Mean Corp Hgb Conc. 33.4 g/dL (33.0-37.0); Mean Corpuscular Hgb 30.2 pg (27.0-31.0); Mean Corpuscular Volume 90.5 fL (81.0-99.0); Mean Platelet Volume 10.7 fL (7.4-10.4); Platelet Count 264 10^3/uL (130-400); Red Cell Dist. Width 13.2 % (11.5-14.5); White Blood Cell Count 6.9 10^3/uL (4.8-10.8)
--- NOTE | 2023-10-03 08:17 | VATNOTE ---
Called to check left arm IV site. Area red and swollen, IV noted to be leaking as well. Patient reports antibiotic was infusing when she noticed swelling in left arm. Discussed with PMD who states she will order treatment. IV removed and new one
placed. Warm pack placed to site. VAT to monitor.
[2023-10-03 08:31] LABS: Blood Urea Nitrogen 17 mg/dl (7-17); Carbon Dioxide 21 mmol/L (22-30); Chloride 105 mmol/L (98-107); Estimated Creatinine Clearance 80 ml/min; Glucose 151 mg/dl (70-99); Potassium 4.6 mmol/L (3.5-5.1); Sodium 132 mmol/L (135-145); eGFR > 60.00
[2023-10-03] MEDS: HYLENEX 30 UNITS SC ×5 (08:38)
--- NOTE | 2023-10-03 09:14 | PHA.VAN.FU ---
Vancomycin Assessment / Plan
- Assessment
Renal Function: Stable
WBC's are: WNL
In the past 24 hrs, patient has been: Afebrile
Concomitant Antimicrobials: CEFEPIME
- Dosing Plan
Continue: 750MG Q12H
PT HAD VANCO EXTRAVASATION WITH 324 AM DOSE
- Monitoring Plan
No level(s) ordered at this time: CONSIDER NEXT DAY
- Follow Up
Pharmacy will continue to follow.
Vancomycin Follow UP
- -
Patient Age: 68
Patient Sex: Female
Vancomycin Day #: 3
Indication: Skin And Soft Tissue
Requesting Provider: Latia Thacker
Pertinent Antimicrobial Allergies:
penicillin - yeast infection
Height / Weight:
Height 5 ft 5 in
Actual Weight 64 kg
- Vital Signs / Lab Results
Temp Pulse Resp BP Pulse Ox
98.2 F 74 16 122/87 99
10/03/23 07:35 10/03/23 07:35 10/03/23 07:35 10/03/23 07:35 10/03/23 07:35
Lab Results - Hematology
10/01/23 10/02/23 10/03/23
16:54 06:59 06:50
WBC 10.8 8.3 6.9
Lab Results - Chemistry
10/01/23 10/02/23 10/03/23
16:54 06:59 06:50
BUN 17 20 H 17
Creatinine 0.8 0.7 0.5 L
Estimated Creat Clear 60 68 80
Albumin 4.7
10/01/23 10/01/23
16:54 20:45
Lactic Acid 0.9 Cancelled
Microbiology Results
10/01/23 20:17 MRSA Screen - Final
Nose No Methicillin Resistant Staphylococcus aureus isolated.
10/01/23 17:17 Blood Culture - Preliminary
Blood/Venous No Growth in 24 hours- Final report to follow
10/01/23 16:54 Blood Culture - Preliminary
Blood/Venous No Growth in 24 hours- Final report to follow
10/01/23 16:54 Wound Culture - Preliminary
Finger - Right No growth
Gram Stain - Preliminary
Therapeutic Drug Monitoring
Random Vancomycin 10.4 ug/ml 10/02/23 06:59
--- NOTE | 2023-10-03 09:43 | W.PN.HOSP.TC ---
Today's Communication/Plan
-
dc
Assessment / Plan
Assessment / Plan
GEN:� No acute distress, conversant, pleasant
HEENT:� anicteric, extraocular movements intact, clear oropharynx without exudates
CV:� normal S1/S2, no murmur, rub or gallop
RESP:� clear to auscultation bilaterally
GI:� soft, non-distended, not tender to palpation, normal active bowel sounds, no hepatosplenomegaly
EXT:� warm, well perfused, no edema bilaterally.� Right thumb inflamed infected with pus, erythema extending from the right thumb up to the elbow area
NEURO:� AAOx3, non-focal
Psych, no agitation
68-year-old female presented with right thumb infection
# Right thumb Paronychial infection with lymphangitis
Failed outpatient treatment with oral
Thumb looks less welling, not tender.
c/w soaks, local wound care
Not toxic appearing
Normal WBC
s/p tetanus booster
Appreciate orthopedic & ID help
# Vancomycin infiltration. Per nurse was small amount of medicine infiltrated. Discussed with pharmacist, will give hyaluronidase treatment. Discussed with IV nurse. Surrounding area, nontender with no erythema, mild subcutaneous edema noticed
only.
# Primary hypertension, no changes recommended.
# DVT prophylaxis
Total discharge time spent to see the patient, examine the patient on the floor, review data and lab results, discuss discharge plan with the patient, nursing staff around 65 minutes
Anticipated Discharge: Today
Subjective/Interval History
-
Date of Service: October 03, 2023
No chest pain
No sob
right thumb less swelling, no pain
She wants to go home
Objective Data
-
Labs:
Laboratory Results
10/03/23
06:50
WBC 6.9
Hgb 13.0
Hct 38.9
Plt Count 264
Sodium 132 L
Potassium 4.6
Chloride 105
Carbon Dioxide 21 L
BUN 17
Creatinine 0.5 L
Glucose 151 H
Calcium 9.0
Vital Signs:
Vital Signs
Temp Pulse Resp BP Pulse Ox
98.2 F 74 16 122/87 99
10/03/23 07:35 10/03/23 07:35 10/03/23 07:35 10/03/23 07:35 10/03/23 07:35
I&O
10/02/23 10/03/23 10/04/23
06:59 06:59 06:59
Intake Total 150 / 150
Balance 150 / 150
[2023-10-03] MEDS: RESTASIS 0.05% OPHTHALMIC EMULSION 1 DROPS BOTH EYES (09:47)
[2023-10-03] MEDS: POLYSPORIN/DOUBLE ANTIBIOTIC 1 APPLIC TOPICAL (09:48)
--- NOTE | 2023-10-03 11:41 | W.PN.UPDATE ---
Update Note
Progress Note Update
Marked improvement
OK for D/C to home on Oral Antibx
Have F/U with me in about 5-7 days
thanks
GGMD
--- NOTE | 2023-10-03 12:58 | CM ---
Patient seen bedside.
Plan d/c home today, no needs.
Plan: home no needs.
--- NOTE | 2023-10-03 14:02 | PTCARENOTE ---
Patient discharge instruction teaching done with her at bedside. She verbalized understanding. She is discharged to him and stated that she was capable of driving herself home.
--- NOTE | 2023-10-03 14:03 | W.DCSUMMARY ---
Discharge Summary
Discharge Data
Date of Admission: 10/01/23
Date of Discharge: 10/03/23
-
Pending Results: No
Hospital Course
68 years old female presented with right thumb swelling and tenderness with purulent discharge. Patient was diagnosed with severe paronychial infection and lymphangitis. Patient received intravenous antibiotics. She was taking Bactrim with no
improvement. Patient was evaluated by orthopedic doctor. Recommended local wound care with hydrogen peroxide soaking. Lymphangitis subsided with resolution of erythema and tenderness of the right forearm. Her right thumb started to improve with
less swelling and tenderness. Wound culture did not show any growth. She was evaluated by infectious diseases assessment consultant. Patient did not have fever or leukocytosis. She remained hemodynamically stable. She was discharged in a stable condition
to continue oral antibiotic for total of 14 days.
Discharge Plan
-
Patient Disposition: Home (Routine Discharge)
Discharge Diagnosis/Procedures: Right thumb severe Paronychia, Resolved Lymphangitis
You are seen by orthopedic and infectious diseases doctors. You received intravenous antibiotics. Potential side effects include nausea, vomiting, fatigue, abdominal cramps, confusion.
Please take your antibiotic and follow-up with your primary care doctor.
Continue wound care as instructed by layla Huber, local wound care: Continue with hydrogen peroxide, antibacterial soap and water, bacitracin Band-Aid.
Diet: As tolerated
Referrals:
Fabiano Green MD [Active] - in one week
Hugo Yao MD [Family Provider] -
Prescriptions:
New
linezolid 600 mg tablet
600 mg PO Q12H Qty: 24 0RF
cephalexin 500 mg capsule
500 mg PO QID Qty: 48 0RF
Rx Instructions:
Patient tolerated cephalosporins before
Continued
lisinopril 20 MG tablet
20 mg PO QPM
amlodipine 5 MG tablet
5 mg PO QPM
cyclosporine [Restasis] 10 DROPS dropperette
1 ea BOTH EYES BID
doxylamine succinate 25 mg Tablet
25 mg PO HS
ibandronate 150 mg tablet
150 mg PO MONTHLY
Discontinued
sulfamethoxazole-trimethoprim 800-160 mg tablet
1 tab PO BID
Discharge Orders:
Discharge Patient (As Directed); Ordered 10/03/23
Ordered By: Ross Alonzo
Discharge Date and Time
Discharge Date/Time: 10/03/23 13:46
== END 2023-10-03 13:46 | disposition home or self-care (01) | DRG 603 ==
LOC: 4 WEST ACU 18:48
PROVIDERS: Nurse Practitioner; Registered Nurse; ADMITTING PHYSICIAN Internal Medicine; CONSULT PHYSICIAN Orthopaedic Surgery Hand Surgery; CONSULT PHYSICIAN Student in an Organized Health Care Education/Training Program; EMERGENCY PHYSICIAN Emergency Medicine; FAMILY PHYSICIAN Family Medicine
DX: L02.511 Cutaneous abscess of right hand (principal); I89.1 Lymphangitis; I10 Essential (primary) hypertension
CPT/HCPCS: 73140; 80048; 80053; 80202; 83605; 85025; 85027; 87040; 87070; 87205; 90471; 90715; 96374; 99284

== ENCOUNTER → 2024-01-20 12:50 | Outpatient (REF) | payer OTHER, SELFPAY | LOC: HWWDC 12:50 | PROVIDERS: ATTENDING PHYSICIAN Family Medicine | DX: Z12.31 Encounter for screening mammogram for malignant neoplasm of breast (principal) | CPT/HCPCS: 77063; 77067 ==

== ENCOUNTER → 2024-11-02 11:52 | Outpatient (REF) | payer OTHER, SELFPAY | LOC: HWRAD 11:52 | PROVIDERS: ATTENDING PHYSICIAN Family Medicine; REFERRING PHYSICIAN Orthopaedic Surgery | DX: M79.642 Pain in left hand (principal) | CPT/HCPCS: 73130 ==

== ENCOUNTER → 2025-01-23 11:27 | Outpatient (REF) | payer OTHER, SELFPAY | LOC: HWWDC 11:27 | PROVIDERS: ATTENDING PHYSICIAN Physician Assistant Medical | DX: Z12.31 Encounter for screening mammogram for malignant neoplasm of breast (principal) | CPT/HCPCS: 77063; 77067 ==